=== PATIENT | female | born 1985 | race Caucasian/White ===

== ENCOUNTER 2022-07-23 05:53 | Emergency (ER) | payer OTHER, SELFPAY ==
[2022-07-23 06:01] VITALS: BP 182/102; PULSE 99; RESP 20; TEMP 37.1; O2SAT 99
--- NOTE | 2022-07-23 07:17 | ED.ANXIETY ---
HPI - Anxiety General Chief Complaint: Anxiety Stated Complaint: Panic attacks, out of body experiences. Time Seen by Provider: 07/23/22 07:00 Source: RN notes reviewed History of Present Illness HPI narrative: Patient presents emergency department from home for anxiety. Patient states she has been having increasingly more frequent anxiety attacks she states that they are occurring 2-3 times a day and states that they cause her to not be able to fully function states that she feels like she is having out of body experiences and that her mind will just be racing patient states that she does see her PCP for this and was recently started on fluoxetine which she does not believe is helping. She does states that she has had some thoughts of ending her life but states that she has not acted on does not have a plan and does not have current thoughts of suicide she denies any homicidal ideation months she denies any recent illness she denies any fevers or chills chest pain shortness of breath abdominal pain or any other symptoms Related Data Home Medications Medication Instructions Recorded Confirmed albuterol sulfate 2.5 mg/3 mL 2.5 mg inhalation Q6H 07/10/22 07/10/22 (0.083 %) solution for nebulization bupropion HCl 150 mg 24 hr tablet, 150 mg PO QAM 07/10/22 07/10/22 extended release fluticasone 250 mcg-salmeterol 50 1 inh inhalation BID 07/10/22 07/10/22 mcg/dose blistr powdr for inhalation (Advair Diskus) lorazepam 0.5 mg tablet 0.5 mg PO DAILY PRN Anxiety 07/10/22 07/10/22 montelukast 10 mg tablet 10 mg PO DAILY 07/10/22 07/10/22 amlodipine 5 mg tablet mg 07/23/22 07/23/22 fluoxetine 20 mg capsule mg 07/23/22 07/23/22 nitrofurantoin 07/23/22 monohydrate/macrocrystals 100 mg capsule Allergies Allergy/AdvReac Type Severity Reaction Status Date / Time clindamycin Allergy Intermediate Other Verified 07/23/22 05:58 sulfamethoxazole Allergy Intermediate Other Verified 07/23/22 05:58 latex Allergy Mild Rash Verified 07/23/22 05:58 Sulfa (Sulfonamide Allergy Unknown Rash Verified 07/23/22 05:58 Antibiotics) sulfamethizole Allergy Unknown Rash Verified 07/23/22 05:58 trimethoprim Allergy Unknown Rash Verified 07/23/22 05:58 Review of Systems Review of Systems: Gen.: Denies fevers or chills ENT: Denies congestion Respiratory: Denies shortness of breath or cough CV: Denies chest pain or palpitations GI: Denies abdominal pain nausea, emesis or diarrhea denies Musculoskeletal: Denies back pain or muscle pain Neuro: Denies numbness, tingling, weakness or focal weakness Skin: Denies rash Psych: See HPI Except as documented, all other systems reviewed and negative FOR[facility]LY [facility] Past Medical History Medical History Anxiety and depression Asthma Bone spur Dizziness Headache High cholesterol Hypertension Irregular periods Plantar fasciitis of right foot Sleep disorder Surgical History Surgical History Delivery by section (06/02/12) Hx of cholecystectomy Family History Family History Grandparent Heart disease paternal grandfather Social History Social History Smoking status: Never smoker Alcohol intake: current Alcohol use details: 3 a month Substance use: never Substance use type: does not use Additional living arrangements comments: Additional occupation/education comments: nurse private duty at [employer] Gender identity (if verbalized by the patient): Female Sexual Orientation (if Verbalized by the Patient): Straight or Heterosexual Exam Narrative: APPEARANCE: Anxious in appearance nontoxic, resting in bed EYES: EOMI HEENT: Normocephalic, atraumatic, OMM RESPIRATORY: No respiratory distress Clear to auscultation bilaterally with
[2022-07-23] MEDS: LORazepam (*CRX) 0.5 MG TABLET PO (07:40)
[2022-07-23 07:42] VITALS: BP 143/82; PULSE 68; RESP 18; O2SAT 99
[2022-07-23 07:45] LABS: Basophils Absolute Auto 0.1 K/mm3 (0.0-0.1); Basophils Percent Auto 0.6 % (0.2-1.2); Eosinophils Absolute Auto 0.1 K/mm3 (0-0.3); Eosinophils Percent Auto 0.6 % (0-4.4); Hematocrit 44.6 % (37.0-47.0); Hemoglobin 14.7 g/dL (12.0-15.0); Immature Granulocyte Absolute 0.06 K/mm3 (0.00-0.031); Immature Granulocyte Percent A 0.5 % (0-0.5); Lymphocytes Absolute Auto 2.15 K/mm3 (0.9-3.2); Mean Corpuscular Hemoglobin 28.7 pg (26-34); Mean Corpuscular Volume 86.9 fl (80-100); Mean Platelet Volume 9.1 fl (7.4-10.4); Monocytes Absolute Auto 0.7 K/mm3 (0.1-0.6); Monocytes Percent Auto 6.3 % (2.6-8.5); Neutrophils Absolute Auto 8.2 K/mm3 (1.3-6.7); Platelet Count Result 315 k/mm3 (150-375); Red Blood Count 5.13 M/mm3 (4.2-5.4); Red Cell Distribution Width 12.7 % (11.5-14.5); White Blood Count 11.3 K/mm3 (4.5-10.0)
[2022-07-23 07:47] LABS: Appearance Urine Clear (Clear); Bilirubin Urine Negative (Negative); Blood Urine Negative (Negative); Color Urine Yellow (Yellow); Glucose Urine UA Negative (Negative); Ketones Urine Negative (Negative); Leukocyte Esterase Ur Trace LEU/UL (Negative); Nitrate Urine Negative (Negative); Protein Urine Negative (Negative); Specific Grav Ur 1.015 (1.001-1.035); Urobilinogen Urine 0.2 mg/dL (<2.0); pH Urine 6.5 (5.0-9.0)
[2022-07-23 07:53] LABS: Ethanol < 10 mg/dL (<10)
[2022-07-23 07:59] LABS: Alanine Aminotransferase 19 U/L (6-35); Albumin Level 4.8 g/dL (3.5-5.1); Alkaline Phosphatase 84 U/L (38-126); Anion Gap 15 mmol/L (8-16); Aspartate Amino Transferase 22 U/L (14-36); Bilirubin,Total 0.7 mg/dL (0.2-1.3); Blood Urea Nitrogen 10 mg/dL (7-17); Calcium 9.3 mg/dL (8.4-10.2); Carbon Dioxide 29 mmol/L (22-30); Chloride 99 mmol/L (98-107); Estimated Glomerular Filt Rate > 60; Glucose 105 mg/dL (65-110); Potassium 3.5 mmol/L (3.4-5.0); Sodium 143 mmol/L (137-145)
[2022-07-23 08:00] LABS: Amphetamine Screen Urine Negative (Negative); Barbiturate Screen Urine Negative (Negative); Benzodiazepines Screen Urine Negative (Negative); Cannabinoid Screen Urine Negative (Negative); Cocaine Screen Urine Negative (Negative); Methadone Screen Urine Negative (Negative); Opiate Screen Urine Negative (Negative); Phencyclidine Screen Urine Negative (Negative)
[2022-07-23 08:09] LABS: Mucus Urine Rare /lpf; RBC Urine 0-2 /hpf (0-2); Squamous Epithelial Cell Urine Moderate /hpf (Few); WBC Urine 0-3 /hpf
[2022-07-23 08:11] LABS: Add Urine Microscopic? YES
[2022-07-23 08:29] LABS: Thyroid Stimulating Hormone 0.677 uIU/mL (0.465-4.680)
[2022-07-23 09:52] VITALS: BP 170/95; PULSE 85; RESP 20; O2SAT 100
== END 2022-07-23 11:50 | disposition home or self-care (01) ==
PROVIDERS: Emergency Provider Emergency Medicine; PCP Internal Medicine
DX: F41.9 Anxiety disorder, unspecified (principal); J45.909 Unspecified asthma, uncomplicated; E78.00 Pure hypercholesterolemia, unspecified; I10 Essential (primary) hypertension; G47.9 Sleep disorder, unspecified; F32.A Depression, unspecified
CPT/HCPCS: 36415; 80053; 80307; 81001; 81025; 84443; 85025; 99284; A9270